=== PATIENT | male | born 1960 | race Caucasian/White ===

== ENCOUNTER 2025-05-10 12:39 | Inpatient (IN) | payer MEDICARE, MEDICAID ==
[~2025-05-10] VITALS: Ht 177.8 cm; Wt 108.9 kg
[2025-05-10 13:32] LABS: BG BASE EXCESS 3.4 mmol/L (-2.0-3.0); BG CARBOXYHEMOGLOBIN 3.6 % (0.5-1.5); BG DEOXYHEMOGLOBIN 6.0 % (0.0-5.0); BG FLOW(L/min) 2.00 L/min; BG FRACTION INSPIRED OXYGEN 28; BG HCO3 ACT 28.5 mmol/L (21.0-28.0); BG METHEMOGLOBIN 0.1 % (0.5-1.5); BG OXYGEN SATURATION 93.8 % (94.0-98.0); BG OXYHEMOGLOBIN 90.3 % (94.0-98.0); BG PCO2 45.2 mmHg (35.0-48.0); BG PH 7.417 (7.350-7.450); BG PO2 69.2 mmHg (83.0-108.0); BG SAMPLE SITE RIGHT RADIAL; BG TOTAL HEMOGLOBIN 12.9 g/dL (13.5-17.5); BG VENT MODE NASAL CANNULA
[2025-05-10 13:57] LABS: BASOPHILS % 1.1 % (0.0-2.0); EOSINOPHILS % 5.9 % (0.0-5.0); HEMATOCRIT. 34.9 % (42.0-52.0); HEMOGLOBIN. 11.3 g/dL (14.0-18.0); LYMPHOCYTES % 13.3 % (20.0-50.0); MEAN PLATELET VOLUME 7.6 fl (7.4-10.4); MONOCYTES % 14.6 % (2.0-8.0); NEUTROPHILS % 65.1 % (40.0-76.0); PLATELET 186 x1000/uL (130-400); RED BLOOD CELL COUNT 4.22 mill/uL (4.7-6.1); RED CELL DISTRIBUTION WIDTH 15.6 % (11.6-14.6)
[2025-05-10 14:13] LABS: CREATININE 0.9 mg/dL (0.6-1.3); UREA NITROGEN BLOOD 17 mg/dL (9-23)
[2025-05-10 14:14] LABS: PROTEIN TOTAL 6.7 g/dL (6.0-8.3)
[2025-05-10 14:15] LABS: ASPARTATE AMINOTRANSFERASE 30 IU/L (<34); BILIRUBIN DIRECT 0.8 mg/dL (<=3.0); BILIRUBIN TOTAL 1.6 mg/dL (0.1-1.0)
[2025-05-10 14:17] LABS: TROPONIN I HIGH SENSITIVITY 11 ng/L (3.0-53)
[2025-05-10] MEDS: FUROSEMIDE 40MG/4ML VIAL IVP ONE (15:41)
[2025-05-10 16:00] VITALS: BP 128/85; PULSE 135; RESP 22; TEMP 36.5; O2SAT 93
[2025-05-10] MEDS ORDERED: DOCUSATE SODIUM 100MG CAPSULE PO PRN (16:45)
[2025-05-10] MEDS ORDERED: GUAIFENESIN 200MG/10ML SUGAR FREE UDC PO PRN (16:45)
[2025-05-10] MEDS ORDERED: ACETAMINOPHEN 325MG TABLET PO PRN ×2 (16:45)
[2025-05-10] MEDS ORDERED: IPRATROPIUM/ALBUTEROL 0.5-3(2.5)MG/3ML NEB HHN PRN (16:45)
[2025-05-10] MEDS ORDERED: CLONIDINE 0.1MG TABLET PO PRN (16:45)
[2025-05-10] MEDS ORDERED: ONDANSETRON HCL 4MG/2ML INJ IV PRN (16:45)
[2025-05-10] MEDS ORDERED: DEXTROSE 50% WATER 50ML SYRINGE IV PRN (16:45)
[2025-05-10] MEDS ORDERED: MAGNESIUM/ALUMINUM HYDROXIDE/SIMETHICONE 30ML UDC PO PRN (16:45)
[2025-05-10 16:49] VITALS: BP 128/85; PULSE 122; PULSE 135; RESP 22; TEMP 36.5292
[2025-05-10] MEDS: INSULIN LISPRO 100 UNITS/ML SUBCUT SCH (17:13)
[2025-05-10] MEDS: BLOOD SUGAR DIAGNOSTIC STRIP TEST SCH (17:13)
[2025-05-10] MEDS: FUROSEMIDE 40MG/4ML VIAL IV SCH (17:29)
[2025-05-10] MEDS: NICOTINE 14MG PATCH TD SCH (17:29)
[2025-05-10] MEDS: DILTIAZEM HCL 30MG TABLET PO SCH (17:39)
[2025-05-10] MEDS ORDERED: ATROV3 NS (17:50)
[2025-05-10 17:58] VITALS: BP 128/85; PULSE 135; RESP 22; TEMP 36.5; O2SAT 93
[2025-05-10] MEDS: ENOXAPARIN 100MG/ML SYR SUBCUT SCH (18:47)
[2025-05-10 19:16] LABS: CLARITY URINE CLEAR (CLEAR); COLOR URINE YELLOW (YELLOW); GLUCOSE URINE NEGATIVE (NEGATIVE); KETONES URINE NEGATIVE (NEGATIVE); LEUKOCYTE ESTERASE URINE NEGATIVE (NEGATIVE); NITRITE URINE NEGATIVE (NEGATIVE); OCCULT BLOOD URINE NEGATIVE (NEGATIVE); PH URINE 6.5 (4.5-8.0); PROTEIN URINE NEGATIVE (NEGATIVE); SPECIFIC GRAVITY URINE 1.013 (1.005-1.030); UROBILINOGEN URINE 1.0 E.U./dL (0.2-1.0)
[2025-05-10 19:21] LABS: *AMPHETAMINES SCREEN URINE NEGATIVE (NEGATIVE)
[2025-05-10 19:22] LABS: *BARBITURATES SCREEN URINE NEGATIVE (NEGATIVE); *BENZODIAZEPINES SCREEN URINE NEGATIVE (NEGATIVE); *COCAINE SCREEN URINE NEGATIVE (NEGATIVE); CANNABINOID URINE SCREEN NEGATIVE (NEGATIVE); ECSTASY MDMA SCREEN URINE NEGATIVE (NEGATIVE); METHADONE URINE SCREEN NEGATIVE (NEGATIVE); OPIATES URINE SCREEN NEGATIVE (NEGATIVE); PHENCYCLIDINE URINE SCREEN NEGATIVE (NEGATIVE)
[2025-05-10 20:00] VITALS: BP 131/82; PULSE 118; RESP 18; TEMP 36.7; O2SAT 96
[2025-05-10] MEDS ORDERED: ENOXAPARIN 30MG/0.3ML SYR SUBCUT SCH (21:00)
[2025-05-10] MEDS: POTASSIUM CHLORIDE 20MEQ TABLET SR PO SCH (21:42)
[2025-05-11] VITALS (7 sets, daily range): BP systolic 118–153; BP diastolic 60–110; PULSE 92–117; RESP 18–20; TEMP 36.4–36.7; O2SAT 97–99
[2025-05-11 08:22] LABS: BASOPHILS % 0.9 % (0.0-2.0); EOSINOPHILS % 7.3 % (0.0-5.0); HEMATOCRIT. 36.3 % (42.0-52.0); HEMOGLOBIN. 11.6 g/dL (14.0-18.0); LYMPHOCYTES % 13.6 % (20.0-50.0); MEAN PLATELET VOLUME 8.3 fl (7.4-10.4); MONOCYTES % 12.1 % (2.0-8.0); NEUTROPHILS % 66.1 % (40.0-76.0); PLATELET 170 x1000/uL (130-400); RED BLOOD CELL COUNT 4.38 mill/uL (4.7-6.1); RED CELL DISTRIBUTION WIDTH 15.4 % (11.6-14.6)
[2025-05-11 08:37] LABS: INR 1.2
[2025-05-11 08:52] LABS: CREATININE 0.7 mg/dL (0.6-1.3); TRIGLYCERIDE 42 mg/dL (0-150); UREA NITROGEN BLOOD 16 mg/dL (9-23)
[2025-05-11 08:53] LABS: LDL CHOLESTEROL 37 mg/dL (5-100)
[2025-05-11 08:55] LABS: FOLIC ACID (FOLATE) SERUM > 20.00 ng/mL (>5.38)
[2025-05-11 08:57] LABS: T4 FREE 1.07 ng/dL (0.89-1.76); VITAMIN B12 SERUM 707 pg/mL (211-911)
[2025-05-11] MEDS: ENOXAPARIN 120MG/0.8ML SYR SUBCUT SCH (09:04)
[2025-05-11] MEDS: IPRATROPIUM/ALBUTEROL 0.5-3(2.5)MG/3ML NEB HHN SCH (20:00)
[2025-05-11] MEDS: INSULIN GLARGINE 100 UNITS/ML SUBCUT SCH (21:18)
[2025-05-12] VITALS (8 sets, daily range): BP systolic 109–137; BP diastolic 59–93; PULSE 86–119; RESP 18–20; TEMP 36.4–36.8; O2SAT 90–99
[2025-05-12 06:13] LABS: PLATELET 178 x1000/uL (130-400); RED BLOOD CELL COUNT 4.37 mill/uL (4.7-6.1); RED CELL DISTRIBUTION WIDTH 15.4 % (11.6-14.6)
[2025-05-12 06:18] LABS: CREATININE 0.7 mg/dL (0.6-1.3)
[2025-05-12 06:20] LABS: UREA NITROGEN BLOOD 13 mg/dL (9-23)
[2025-05-12] MEDS: EMPAGLIFLOZIN 10MG TABLET PO SCH (08:54)
[2025-05-12] MEDS: FERROUS SULFATE 325MG TABLET PO SCH (08:54)
[2025-05-12] MEDS: METHYLPREDNISOLONE SOD SUCC 125MG/2ML (ACT-O-VIAL) IV NR (11:49)
[2025-05-12] MEDS: MAGNESIUM 2 G PREMIX 50 ML IV NR (12:26)
[2025-05-12] MEDS: POTASSIUM CHLORIDE 20MEQ/PACKET PO SCH (13:14)
[2025-05-13] VITALS (7 sets, daily range): BP systolic 111–141; BP diastolic 80–93; PULSE 88–116; RESP 17–22; TEMP 36.4–36.7; O2SAT 90–98
[2025-05-13] MEDS ORDERED: EMPA10TA PO (13:21)
[2025-05-13] MEDS ORDERED: DILT120C88 PO (13:21)
[2025-05-13] MEDS ORDERED: APIX5TAB PO (13:21)
[2025-05-13] MEDS ORDERED: ALBU18HF2 IH (13:21)
[2025-05-13] MEDS ORDERED: FERR-63 PO (13:21)
[2025-05-13] MEDS ORDERED: METF-1150 MT (13:21)
[2025-05-13] MEDS ORDERED: FURO20TA4 MT (13:23)
[2025-05-13] MEDS ORDERED: MAGN400T26 MT (13:25)
[2025-05-13] MEDS ORDERED: APIXABAN 5 MG TABLET PO SCH (21:00)
[2025-05-14] MEDS ORDERED: DILTIAZEM HCL 120MG CAPSULE ER 24HR PO SCH (09:00)
== END 2025-05-13 18:06 | disposition home or self-care (01) | DRG 291 ==
LOC: ER 12:39 → 8WST 14:44 → EDBEDREQTM 14:48 → EDBEDREQ 14:48 → ENRESERV 15:32
PROVIDERS: ADMIT Hospitalist; ATTEND Hospitalist
DX: I11.0 Hypertensive heart disease with heart failure (principal); I50.43 Acute on chronic combined systolic (congestive) and diastolic (congestive) heart failure; E87.0 Hyperosmolality and hypernatremia; J44.1 Chronic obstructive pulmonary disease with (acute) exacerbation; I48.92 Unspecified atrial flutter; L03.115 Cellulitis of right lower limb; I27.20 Pulmonary hypertension, unspecified; L03.116 Cellulitis of left lower limb; Z79.01 Long term (current) use of anticoagulants; E11.65 Type 2 diabetes mellitus with hyperglycemia; E66.01 Morbid (severe) obesity due to excess calories; D50.9 Iron deficiency anemia, unspecified; I48.91 Unspecified atrial fibrillation; Z68.34 Body mass index [BMI] 34.0-34.9, adult; E83.42 Hypomagnesemia; E11.51 Type 2 diabetes mellitus with diabetic peripheral angiopathy without gangrene; F17.210 Nicotine dependence, cigarettes, uncomplicated; E78.5 Hyperlipidemia, unspecified; Z86.73 Personal history of transient ischemic attack (TIA), and cerebral infarction without residual deficits; Z79.84 Long term (current) use of oral hypoglycemic drugs; Z87.442 Personal history of urinary calculi
CPT/HCPCS: 36415; 36600; 71045; 71275; 80048; 80061; 80076; 80305; 81003; 82375; 82607; 82728; 82746; 82805; 82962; 83036; 83540; 83550; 83735; 83880; 84439; 84443; 84484; 85025; 85027; 85379; 93005; 93306; 93970; 94070; 94640; 94664; 99285; A4615; J1650; J1815; J1938; J2919; J3475